=== PATIENT | female | born 2000 | race Two or more races ===

== ENCOUNTER 2024-12-16 13:20 | Outpatient (CLI) | payer OTHER, SELFPAY ==
--- NOTE | 2024-12-16 13:15 | RT.EKG_ITS ---
APPROVED REPORT Exam: Resting ECG Reason for Exam: chest pain Patient Location: O HR:59 bpm ECG Measurements Heart Rate 59 AXIS DE 148 P 6 QRSd 87 QRS 49 QT 451 T 30 QTc 447 Conclusion Incomplete analysis due to missing data in precordial lead(s) Sinus rhythm...normal P axis, V-rate 50- 99 Missing lead(s): V2 Otherwise normal ECG
--- NOTE | 2024-12-16 13:45 | RT.EKG_ITS ---
APPROVED REPORT Exam: Resting ECG Reason for Exam: chest pain Patient Location: O HR:62 bpm ECG Measurements Heart Rate 62 AXIS MT 146 P -18 QRSd 89 QRS 53 QT 458 T 34 QTc 466 Conclusion Sinus rhythm...normal P axis, V-rate 50- 99 Baseline wander in lead(s) V1 Normal Electrocardiogram
== END 2024-12-16 13:21 | disposition home or self-care (01) ==
PROVIDERS: Visit Provider Nurse Practitioner Family
DX: R07.9 Chest pain, unspecified (principal)
CPT/HCPCS: 93010